=== PATIENT | female | born 1990 | race Caucasian/White ===

== ENCOUNTER 2017-10-09 22:25 | Emergency (ER) | payer MEDICAID ==
[~2017-10-09] VITALS: Ht 167.6 cm; Wt 52.2 kg
[2017-10-09 22:50] VITALS: BP 116/72
== END 2017-10-09 23:13 | disposition left against medical advice (07) ==
LOC: ER 22:44
DX: R51 Headache (principal); M54.2 Cervicalgia; F41.9 Anxiety disorder, unspecified; Z53.21 Procedure and treatment not carried out due to patient leaving prior to being seen by health care provider